=== PATIENT | female | born 1985 | race Hispanic/Latino ===

== ENCOUNTER 2018-07-30 10:19 | Inpatient (IN) | payer MEDICAID ==
[2018-07-30] MEDS ORDERED: PEPCID IV ONE (10:40)
[2018-07-30] MEDS ORDERED: REGLAN IV ONE (10:40)
[2018-07-30] MEDS ORDERED: BICITRA PO ONE (10:40)
[2018-07-30] MEDS ORDERED: DILAUDID IV PRN (10:58)
[2018-07-30] MEDS ORDERED: PHENERGAN PR PRN (10:58)
[2018-07-30] MEDS ORDERED: ZOFRAN IV PRN (10:58)
[2018-07-30] MEDS ORDERED: NARCAN 0.4 MG/1 ML IV PRN ×2 (10:58→17:32)
[2018-07-30] MEDS ORDERED: PHENERGAN PO PRN (10:58)
[2018-07-30] MEDS ORDERED: SODIUM CHLORIDE FLUSH SYRINGE 10 ML IV NR ×2 (11:00→18:00)
[2018-07-30] MEDS ORDERED: PITOCin/NS 20 UNIT/1000ML DRIP 20 UNITS/1,000 ML BAG IV SCH ×2 (11:00→18:00)
[2018-07-30] MEDS: LACTATED RINGERS 1,000 ML IV SCH ×2 (11:00→12:18)
[2018-07-30] MEDS ORDERED: ANCEF/STERILE WATER 2 GM/20 ML 2 GM/20 ML SYRINGE IV NR (11:00)
--- NOTE | 2018-07-30 11:06 | Anesthesia Consultation ---
Anesthesia Consult and Med Hx - Airway Anesthetic Teeth Evaluation: Good ROM Head & Neck: Adequate Mental/Hyoid Distance: Adequate Mallampati Class: Class II Intubation Access Assessment: Probably Good - Pulmonary Exam CTA: Yes - Cardiac Exam Cardiac Exam: RRR - Pre-Operative Health Status ASA Pre-Surgery Classification: ASA2 Proposed Anesthetic Plan: Spinal - Pulmonary Hx Asthma: No - Cardiovascular System Hx Hypertension: No - Central Nervous System Hx Seizures: No Hx Back Pain: Yes Hx Psychiatric Problems: No - Endocrine Hx Renal Disease: No Hx Hypothyroidism: No Hx Hyperthyroidism: No - Hematic Hx Anemia: No Hx Sickle Cell Disease: No - Other Systems Hx Alcohol Use: Yes (2 drinks daily) - Additional Comments Anesthesia Medical History Comments: pt states previous lumbar fusion at L4-5 2014, stated legs went completely numb with tingling, started with epidural injection but ended up needing fusion. Denies symptoms currently. Has had multiple cervical injections for numbness and tingling arms and fingers. Denies currently. Will attempt spinal L3-4 above fusion
--- NOTE | 2018-07-30 11:07 | Anesthesia Day of Surgery ---
Anesthesia Day of Surgery - Day of Surgery Patient Examined: Yes Patient H&P Reviewed: Yes Patient is NPO: Yes Beta Blockers: No Cardiac Clearance: No Pulmonary Clearance: No Zi's Test: N/A
[2018-07-30 11:19] LABS: Basophils % (Auto) 0.3 % (0.0-1.8); Eosinophils % (Auto) 0.2 % (0.0-4.3); Hematocrit 33.6 % (30.3-42.9); Hemoglobin 11.9 gm/dl (10.1-14.3); Lymphocytes # (Auto) 1.2 K/mm3 (1.2-5.4); Lymphocytes % (Auto) 13.4 % (13.4-35.0); Mean Corpuscular HGB Conc 36 % (30-34); Mean Corpuscular Volume 92 fl (79-97); Monocytes # (Auto) 0.5 K/mm3 (0.0-0.8); Monocytes % (Auto) 5.9 % (0.0-7.3); Platelet Count 253 K/mm3 (140-440); Red Blood Count 3.64 M/mm3 (3.65-5.03); Red Cell Distribution Width 12.8 % (13.2-15.2)
[2018-07-30 13:21] LABS: Hematocrit 32.2 % (30.3-42.9); Hemoglobin 11.4 gm/dl (10.1-14.3); Mean Corpuscular HGB Conc 36 % (30-34); Mean Corpuscular Volume 93 fl (79-97); Platelet Count 240 K/mm3 (140-440); Red Blood Count 3.48 M/mm3 (3.65-5.03); Red Cell Distribution Width 12.5 % (13.2-15.2)
[2018-07-30 13:42] LABS: Alanine Aminotransferase 7 units/L (7-56); Uric Acid 4.8 mg/dL (3.5-7.6)
--- NOTE | 2018-07-30 16:59 | History and Physical Report ---
History of Present Illness Date of examination: 07/30/18 Date of admission: 07/30/18 10:19 Chief complaint: elevated blood pressures and headache History of present illness: 33y/o @ 37+0 weeks presents with elevated blood pressures and headache. The patient's course is complicated by gestational DM and hypertension. Per recommendation of [facility] to deliver at 37-38 weeks. The patient has a history of a prior delivery. Past History Past Medical History: other (CF carrier) Past Surgical History: cholecystectomy, section, other (spinal fusion) Social history: single - Obstetrical History Expected Date of Delivery: 08/20/18 Actual Gestation: 37 Week(s) 0 Day(s) : 3 Para: 1 Hx # Term Pregnancies: 1 Number of Pregnancies: 0 Spontaneous Abortions: 0 Induced : 1 Number of Living Children: 1 Medications and Allergies Allergies Allergy/AdvReac Type Severity Reaction Status Date / Time No Known Allergies Allergy Verified 04/16/18 11:18 Active Meds: Active Medications Hydromorphone HCl (Dilaudid) 0.5 mg IV Q5M PRN PRN Reason: Breakthrough Pain Stop: 07/30/18 23:59 Cefazolin Sodium (Ancef/Sterile Water 2 Gm/20 Ml) 2 gm in 20 mls @ 80 mls/hr IV PREOP NR; Protocol Stop: 07/30/18 23:59 Lactated Ringer's (Lactated Ringers) 1,000 mls @ 2,250 mls/hr IV PREOP YASMIN Stop: 07/31/18 11:27 Last Admin: 07/30/18 12:18 Dose: 2,250 mls/hr Documented by: Oxytocin/Sodium Chloride (Pitocin/Ns 20 Unit/1000ml Drip) 20 units in 1,000 mls @ 0 mls/hr IV TITR YASMIN Naloxone HCl (Narcan 0.4 Mg/1 Ml) 0.2 mg IV Q2MIN PRN PRN Reason: Res Rate </= 8 or 02 SAT < 92% Ondansetron HCl (Zofran) 4 mg IV Q8H PRN PRN Reason: Nausea And Vomiting Promethazine HCl (Phenergan) 25 mg PO Q6H PRN PRN Reason: Nausea And Vomiting Promethazine HCl (Phenergan) 25 mg DE Q6H PRN PRN Reason: Nausea And Vomiting Sodium Chloride (Sodium Chloride Flush Syringe 10 Ml) 10 ml IV PRN NR Stop: 07/30/18 23:59 Review of Systems All systems: negative Constitutional: other (headache) Genitourinary: no leakage of fluid, no contractions - Vital Signs Vital signs: Vital Signs Pulse BP 83 127/75 07/30/18 10:37 07/30/18 10:37 Temp Pulse Resp BP Pulse Ox 90 126/74 07/30/18 11:07 07/30/18 11:07 - Physical Exam Breasts: Positive: deferred Cardiovascular: Regular rate Lungs: Positive: Clear to auscultation Abdomen: Positive: normal appearance Results Result Diagrams: 07/30/18 13:14 07/30/18 13:14 Abnormal lab results 07/30/18 07/30/18 07/30/18 Range/Units 10:57 13:14 13:14 RBC 3.64 L 3.48 L (3.65-5.03) M/mm3 MCH 33 H 33 H (28-32) pg MCHC 36 H 36 H (30-34) % RDW 12.8 L 12.5 L (13.2-15.2) % Seg Neutrophils % 80.2 H (40.0-70.0) % Creatinine 0.4 L (0.7-1.2) mg/dL Lactate Dehydrogenase 193 H (91-180) units/L All other labs normal. Assessment and Plan - Patient Problems (1) Gestational hypertension Current Visit: Yes Status: Acute Plan to address problem: proceed with repeat and BTL (2) Gestational diabetes mellitus Current Visit: Yes Status: Acute (3) Previous section Current Visit: Yes Status: Acute
--- NOTE | 2018-07-30 17:30 | Procedure Note ---
OB Delivery Note - Delivery Date of Delivery: 07/30/18 Surgeon: LESLIE MCDONALD Estimated blood loss: other (900ml) - Section Preop diagnosis: repeat Postop diagnosis: same section procedure: section, repeat low transverse, bilateral tubal ligation Disposition: PACU Complications: none - Infant A at 1 minute: 9 at 5 minutes: 9 Gender: Female (weight 6 lbs. 9 oz.)
--- NOTE | 2018-07-30 17:31 | Operative Report ---
Operative Report Operative Report: Date of surgery: 07/30/2018 Preoperative diagnosis: at 37+0 weeks; gestational hypertension; gestational diabetes Postoperative diagnosis: Same as above Procedure: Repeat low transverse delivery and bilateral tubal ligation via [place] method Surgeon: Parvin Collazo M.D. Anesthesia: Regional Estimated blood loss: 900 mL IV fluids: 1600 mL Urine output: 50 mL Findings: Liveborn female with Apgars of 9 and 9 weight 6 and 9 ounces Indications: 33-year-old at 37+0 weeks who presents with findings of elevated blood pressure and headache. The patient had been diagnosed during the with gestational hypertension and also diabetes. Per recommendation of [facility] the patient was to be delivered at 37-38 weeks. Procedure: The patient was taken to the operating room and given regional anesthesia without complication. She was prepped and draped in a normal sterile fashion. A Pfannenstiel skin incision was made down to layer the fascia which was nicked in the midline extended laterally with the Bovie cautery. The superior aspect of the rectus f ascia was grasped with [place] clamps x2 and the rectus muscles off sharply. This was done in inferior fashion as well. The rectus muscle midline and peritoneum entered bluntly. An Radames retractor was then inserted. A bladder blade was placed. The vesicouterine peritoneum was then entered sharply with Metzenbaum scissors. A bladder flap was created digitally. A low transverse uterine incision was then made and extended digitally. There was clear fluid upon entry into the uterine cavity. The head was delivered through the incision with fundal pressure. A nuchal cord 1 was manually reduced. The cord was clamped and cut x2 and was passed off to pediatrics. The placenta was then manually extracted. The uterus was then exteriorized and cleared of clots and debris. The uterine incision was then closed in a running locked fashion with 0 Vicryl additional imbricating stitch was applied for 2 layer closure. Attention was then turned to the patient's tube where the ampullary portion of the right tube was grasped with a Meri. A window was created in the mesosalpinx with the Bovie cautery. The distal and proximal area of the ampullary tubal ligated 2 with 2-0 plain gut. A 1 cm portion of tube was then excised. This is performed on the contralateral side as well. The posterior cul-de-sac was then copiously irrigated. The uterus was replaced back into the abdomen and pelvis were the gutters were then irrigated. The Radames retractor was then removed. The peritoneum was then reapproximated with 3-0 Vicryl incorporating the rectus muscle. The fascia was then closed with 0 Vicryl in a running fashion. The skin was then reapproximated with 3-0 Monocryl on a Morris needle subcuticular fashion. Steri-Strips to place across the incision and a Crede procedures performed at the end of the surgery. A pressure dressing was applied to the incision. The surgery productive of a liveborn female with Apgars of 9 and 9 weight 6 lbs. 9 oz. The patient was taken to the recovery room in stable condition. All sponge laps and needle counts correct x2.
[2018-07-30] MEDS ORDERED: MILK OF MAGNESIA PO PRN (17:32)
[2018-07-30] MEDS ORDERED: MORPHINE IV PRN (17:32)
[2018-07-30] MEDS ORDERED: LANSINOH TP PRN (17:32)
[2018-07-30] MEDS ORDERED: TUCKS PAD TP PRN (17:32)
[2018-07-30] MEDS ORDERED: TORADOL IV PRN (17:32)
[2018-07-30] MEDS ORDERED: TYLENOL PO PRN (17:32)
[2018-07-30] MEDS ORDERED: ZOFRAN ONE (17:44)
[2018-07-30] MEDS ORDERED: SUBLIMAZE ONE (17:44)
[2018-07-30] MEDS ORDERED: D5LR 1,000 ML IV SCH (18:00)
[2018-07-30] MEDS ORDERED: NACL 0.9% IR ONE (18:00)
[2018-07-30] MEDS ORDERED: WATER FOR IRRIG STERILE IR ONE (18:00)
[2018-07-30] MEDS ORDERED: TORADOL ONE (18:45)
--- NOTE | 2018-07-30 19:06 | Post Anesthesia Evaluation ---
- Post Anesthesia Evaluation Patient Participated: Yes Airway Patent: Yes Stable Respiratory Function: Yes Nausea/Vomiting: No Temp > 96.8F: Yes Pain Manageable: Yes Adequeate Hydration: Yes Anesthesia Complications: No Block Receding Appropriately: Yes Patient on Ventilator: No
[2018-07-31] MEDS: PERCOCET 5/325 PO PRN ×5 (01:18→20:43)
[2018-07-31] MEDS: IBUPROFEN PO PRN ×3 (06:17→18:51)
[2018-07-31 07:47] LABS: Hematocrit 26.3 % (30.3-42.9); Hemoglobin 9.2 gm/dl (10.1-14.3)
--- NOTE | 2018-07-31 12:22 | Progress Note ---
Assessment and Plan - Patient Problems (1) Gestational hypertension Current Visit: Yes Status: Acute Plan to address problem: patient doing well routine postop care (2) Gestational diabetes mellitus Current Visit: Yes Status: Acute (3) Previous section Current Visit: Yes Status: Acute Subjective - Subjective Date of service: 07/31/18 Interval history: Patient reports her pain is being controlled. She denies flatus but has eaten a regular diet without difficulty. Patient reports: appetite normal, voiding normally, pain well controlled [place]: doing well Objective - Vital Signs Latest vital signs: Vital Signs Temp Pulse Resp BP BP Pulse Ox 07/31/18 07:32 98 F 90 18 126/75 07/31/18 07:17 18 07/31/18 06:17 18 07/31/18 02:18 18 07/31/18 01:18 18 07/31/18 00:47 98.3 F 83 16 135/60 97 07/31/18 00:08 18 07/30/18 23:38 18 07/30/18 22:32 18 07/30/18 22:02 18 07/30/18 21:51 18 07/30/18 20:51 18 07/30/18 20:22 97.6 F 72 18 125/43 99 07/30/18 20:00 97.7 F 73 17 108/54 98 07/30/18 19:45 69 13 107/49 99 07/30/18 19:30 82 16 113/56 99 07/30/18 19:15 65 15 108/44 99 07/30/18 19:10 67 15 101/45 99 07/30/18 19:08 97.8 F 69 16 106/50 99 07/30/18 17:21 76 143/71 Intake and Output 07/30/18 07/31/18 07/31/18 22:59 06:59 14:59 Intake Total 1700 920 480 Output Total 140 1350 Balance 1560 920 -870 Intake: IV 1700 Oral 360 480 Intake, Free Water 560 Output: Urine 140 1350 Indwelling Catheter 1350 Uretheral ([place]) 50 Other: Total, Intake Amount 360 480 Total, Output Amount 1350 Estimated Blood Loss 900 - Exam Abdomen: Present: normal appearance Incision: Present: dressed - Labs Labs: Abnormal lab results 07/30/18 07/30/18 07/31/18 Range/Units 13:14 13:14 07:01 RBC 3.48 L (3.65-5.03) M/mm3 Hgb 9.2 L (10.1-14.3) gm/dl Hct 26.3 L (30.3-42.9) % MCH 33 H (28-32) pg MCHC 36 H (30-34) % RDW 12.5 L (13.2-15.2) % Creatinine 0.4 L (0.7-1.2) mg/dL Lactate Dehydrogenase 193 H (91-180) units/L
[2018-08-01] MEDS: PERCOCET 5/325 PO PRN ×6 (00:53→20:52)
[2018-08-01] MEDS ORDERED: BOOSTRIX IM ONE (06:00)
[2018-08-01] MEDS: IBUPROFEN PO PRN ×3 (08:52→23:23)
--- NOTE | 2018-08-01 11:14 | Progress Note ---
Assessment and Plan A: POD#2 s/p repeat section and tubal ligation at term Gestational HTN Gestational Diabetes Morbid Obesity P: Routine postoperative care Abdominal binder Anticipate discharge tomorrow Subjective - Subjective Date of service: 08/01/18 Principal diagnosis: s/p repeat section, gestational HTN, gestational diabetes, obesity Interval history: Pt with no unusual complaints. Patient reports: voiding normally, pain well controlled, flatus, ambulating normally, no bowel movement [place]: doing well Objective - Vital Signs Latest vital signs: Vital Signs Temp Pulse Resp BP BP Pulse Ox 08/01/18 08:40 98.8 F 108 H 20 139/67 08/01/18 00:53 18 08/01/18 00:37 98.5 F 97 H 18 121/70 98 07/31/18 20:43 18 07/31/18 16:29 98.6 F 97 H 18 123/77 99 07/31/18 12:13 97.3 F L 90 18 117/72 Intake and Output 07/31/18 08/01/18 08/01/18 22:59 06:59 14:59 Intake Total 360 241 Output Total 600 Balance -600 360 241 Intake: Oral 241 Intake, Free Water 360 Output: Urine 600 Void 600 Other: Total, Intake Amount 241 Total, Output Amount 600 # Voids Void 2 2 1 - Exam Breasts: Present: deferred Cardiovascular: Present: Regular rate Lungs: Present: Clear to auscultation Abdomen: Present: soft (obese ), abnormal bowel sounds (hypoactive ) Uterus: Present: fundal height at umbilicus Extremities: Present: edema (trace ) Incision: Present: intact (steristrips)
[2018-08-01] MEDS: MILK OF MAGNESIA PO PRN ×2 (17:38→23:23)
[2018-08-02] MEDS: PERCOCET 5/325 PO PRN ×4 (01:18→13:50)
[2018-08-02] MEDS: MILK OF MAGNESIA PO PRN (05:06)
[2018-08-02] MEDS: IBUPROFEN PO PRN (05:06)
--- NOTE | 2018-08-02 08:11 | Progress Note ---
Assessment and Plan A: POD#3 s/p repeat section and tubal ligation at term Gestational HTN Gestational Diabetes Morbid Obesity P: Discharge today with follow up in 1 week for BP check and incision check Subjective - Subjective Date of service: 08/02/18 Principal diagnosis: s/p repeat section, gestational HTN, gestational diabetes, obesity Interval history: Pt with no unusual complaints. She had a bowel movement this morning. Patient reports: appetite normal, voiding normally, pain well controlled, flatus, bowel movement, ambulating normally : doing well Objective - Vital Signs Latest vital signs: Vital Signs Temp Pulse Resp BP 08/01/18 16:40 98.5 F 87 20 98/55 08/01/18 08:40 98.8 F 108 H 20 139/67 Intake and Output 08/01/18 08/02/18 08/02/18 22:59 06:59 14:59 Intake Total 240 Balance 240 Intake: Oral 240 Other: Total, Intake Amount 240 # Voids Void 1 - Exam Breasts: Present: deferred Cardiovascular: Present: Regular rate Lungs: Present: Clear to auscultation Abdomen: Present: soft (obese ), normal bowel sounds Uterus: Present: fundal height below umbilicus Extremities: Present: edema (trace) Incision: Present: intact (steristrips )
--- NOTE | 2018-08-02 08:12 | Discharge Summary ---
Providers - Providers Date of Admission: 07/30/18 10:19 Date of discharge: 08/02/18 Attending physician: LESLIE MCDONALD Primary care physician: ANDREAS LOPEZ MD Hospitalization Reason for admission: section, other (Gestational HTN ) Delivery: Procedure: section, bilateral tubal ligation, repeat low transverse Procedure details: Please see operative report. Incision: intact (steristrips ) Other procedures: none complications: none Discharge diagnosis: IUP at term delivered [place] baby: female Hospital course: The patient was admitted for a repeat section secondary to gestational hypertension at 37 weeks. She tolerated the procedure well. Her post operative course. She met discharge criteria on postoperative day #3. She will follow-up in the office in 1 week for a blood pressure check as well as an incision check. Condition at discharge: Stable Disposition: [id number] TO HOME OR SELFCARE - Discharge Diagnoses (1) Term of female Status: Acute (2) Morbid obesity Status: Acute (3) Gestational diabetes mellitus Status: Acute Qualifiers: Gestational diabetes mellitus control: diet-controlled Trimester: third trimester Qualified Code(s): O24.410 - Gestational diabetes mellitus in , diet controlled (4) Gestational hypertension Status: Acute Qualifiers: Trimester: third trimester Qualified Code(s): O13.3 - Gestational [-induced] hypertension without significant proteinuria, third trimester (5) Previous section Status: Acute Plan - Discharge Medications Prescriptions: Docusate Sodium [Colace] 100 mg PO BID PRN #60 capsule PRN Reason: Constipation Ibuprofen [Motrin] 800 mg PO Q8HR PRN #60 tablet PRN Reason: Pain, Mild (1-3) oxyCODONE /ACETAMINOPHEN [Percocet 5/325] 1 tab PO Q6HR PRN #30 tablet PRN Reason: Pain - Provider Discharge Summary Activity: routine, no sex for 6 weeks, no heavy lifting 4 weeks, no strenuous exercise Diet: routine Instructions: routine Additional instructions: [] Smoking cessation referral if applicable(refer to patient education folder for contact #) [] Refer to [facility]'s [facility] Booklet Call your doctor immediately for: * Fever > 100.5 * Heavy vaginal bleeding ( >1 pad per hour) * Severe persistent headache * Shortness of breath * Reddened, hot, painful area to leg or breast * Drainage or odor from incision. * Keep incision clean and dry at all times and follow doctor's instructions regarding bathing/showering - Follow up plan Follow up: ANDREAS LOPEZ MD [Primary Care Provider] - 7 Days (blood pressure and incision check )
[2018-08-02 14:15] VITALS: BP 124/56
== END 2018-08-02 15:20 | disposition home or self-care (01) | DRG 765 ==
LOC: APU 10:19 → OB 20:03
PROVIDERS: ADMIT Obstetrics & Gynecology; ATTEND Obstetrics & Gynecology
PROC: 10D00Z1 Extraction of Products of Conception, Low, Open Approach (ICD-10-PCS; principal; 2018-07-30)
PROC: 0UB70ZZ Excision of Bilateral Fallopian Tubes, Open Approach (ICD-10-PCS; 2018-07-30)
DX: O34.211 Maternal care for low transverse scar from previous cesarean delivery (principal); O13.4 Gestational [pregnancy-induced] hypertension without significant proteinuria, complicating childbirth; R71.0 Precipitous drop in hematocrit; O99.314 Alcohol use complicating childbirth; O24.429 Gestational diabetes mellitus in childbirth, unspecified control; O99.214 Obesity complicating childbirth; O75.89 Other specified complications of labor and delivery; E66.01 Morbid (severe) obesity due to excess calories; Z3A.37 37 weeks gestation of pregnancy; Z37.0 Single live birth; Z72.89 Other problems related to lifestyle; Z90.49 Acquired absence of other specified parts of digestive tract
CPT/HCPCS: 36415; 59025; 82565; 83615; 84450; 84460; 84550; 85014; 85018; 85025; 85027; 86850; 86900; 86901; 88302; 90471; 90715; 96360; 96361; 96374; 96375; G0378; J0690; J1885; J2270; J2405; J2590; J2765; J3010; J7120; J7121